=== PATIENT | female | born 1960 | race Caucasian/White ===

== ENCOUNTER 2020-02-16 13:25 | Emergency (ER) | payer SELFPAY ==
[~2020-02-16] VITALS: Ht 149.9 cm; Wt 52.2 kg
[2020-02-16] MEDS ORDERED: KETOROLAC TROMETHAMINE 60 MG/2 ML VIAL IM ONE (15:00)
[2020-02-16 16:56] VITALS: BP 165/69
== END 2020-02-16 17:01 | disposition home or self-care (01) ==
LOC: ER 13:45
DX: S93.401A Sprain of unspecified ligament of right ankle, initial encounter (principal); X50.1XXA Overexertion from prolonged static or awkward postures, initial encounter; Y92.008 Other place in unspecified non-institutional (private) residence as the place of occurrence of the external cause; I10 Essential (primary) hypertension; J45.909 Unspecified asthma, uncomplicated; I34.1 Nonrheumatic mitral (valve) prolapse
CPT/HCPCS: 29515; 73610; 73630; 99283; J1885

== ENCOUNTER 2023-05-29 16:30 | Observation (INO) | payer SELFPAY ==
[~2023-05-29] VITALS: Ht 149.9 cm; Wt 47.2 kg
[2023-05-29] MEDS ORDERED: ONDANSETRON HCL INJ 2MG/ML 2ML 2 MG/ML VIAL ONE (16:53)
[2023-05-29] MEDS: ONDANSETRON HCL INJ 2MG/ML 2ML 2 MG/ML VIAL IV STA (16:58)
[2023-05-29] MEDS ORDERED: ACETAMINOPHEN 325 MG TAB PO ONE (17:00)
[2023-05-29] MEDS: SODIUM CHLORIDE 0.9% 1000ML 1,000 ML IV SCH (17:21)
[2023-05-29] MEDS: FAMOTIDINE 20 MG/2 ML VIAL IV STA (17:22)
[2023-05-29] MEDS: HYDRALAZINE HCL 20 MG/ML VIAL IV ONE (17:22)
[2023-05-29] MEDS ORDERED: ALBUTEROL/IPRATROPIUM 3 ML NEB ONE (18:23)
[2023-05-29] MEDS ORDERED: KETOROLAC TROMETHAMINE 30 MG/ML VIAL ONE (18:23)
[2023-05-29] MEDS: ALBUTEROL/IPRATROPIUM 3 ML NEB NEB ONE (18:24)
[2023-05-29] MEDS: KETOROLAC TROMETHAMINE 30 MG/ML VIAL IV STA (18:25)
[2023-05-29] MEDS ORDERED: IOPAMIDOL 370 MG/ML 100 ML INFUS..BTL INJ ONE (18:58)
[2023-05-29] MEDS: PROMETHAZINE 12.5MG/ NACL 0.9% 12.5 MG/50 ML BAG IV ONE (19:09)
[2023-05-29] MEDS ORDERED: PROMETHAZINE HCL (IM) 25 MG/ML VIAL IM ONE (19:09)
[2023-05-29] MEDS ORDERED: ONDANSETRON HCL INJ 2MG/ML 2ML 2 MG/ML VIAL IV PRN (20:30)
[2023-05-29] MEDS ORDERED: SODIUM CHLORIDE 0.9% 1000ML 1,000 ML IV SCH (20:30)
[2023-05-29 21:18] VITALS: BP 143/69; PULSE 101; RESP 20; TEMP 98.6; O2SAT 97
[2023-05-29 21:20] VITALS: BP 143/69; PULSE 101; RESP 20; TEMP 98.6; O2SAT 97
[2023-05-29] MEDS ORDERED: GUAIFENESIN 600MG/DEXTROMETHORPHAN 30MG TABSR PO PRN (22:00)
[2023-05-29] MEDS: OSELTAMIVIR PHOSPHATE 75 MG CAP PO SCH (22:16)
[2023-05-29] MEDS: LISINOPRIL 20 MG TAB PO ONE (22:17)
[2023-05-29] MEDS: GUAIFENESIN 600MG/DEXTROMETHORPHAN 30MG TABSR PO PRN (22:48)
[2023-05-30] VITALS (8 sets, daily range): BP systolic 115–153; BP diastolic 61–90; PULSE 79–120; RESP 18–20; TEMP 98.1–98.7; O2SAT 94–100
[2023-05-30] MEDS: ALBUTEROL/IPRATROPIUM 3 ML NEB NEB SCH (01:49)
[2023-05-30] MEDS: HYDRALAZINE HCL 20 MG/ML VIAL IV ONE (02:43)
[2023-05-30] MEDS ORDERED: LISINOPRIL20 MG PO (05:23)
[2023-05-30] MEDS ORDERED: METOPROLOL SUCC25 MG PO (05:23)
[2023-05-30 06:13] LABS: BASOPHILS % 0.3 % (0.0-1.0); EOSINOPHILS % 0.3 % (0.0-6.0); HEMATOCRIT 37.3 % (34.2-44.1); HEMOGLOBIN 11.8 g/dL (12.0-16.0); LYMPHOCYTES # (AUTO) 0.8 (1.0-3.2); LYMPHOCYTES % 26.8 % (18.0-39.1); MEAN CORPUSCULAR HEMOGLOBIN 29.2 pg (28-32); MEAN CORPUSCULAR HGB CONC 31.6 g/dL (31-35); MEAN CORPUSCULAR VOLUME 92.3 fL (81-99); MONOCYTES # (AUTO) 0.4 (0.2-0.8); MONOCYTES % 14.2 % (4.4-11.3); NEUTROPHILS # (AUTO) 1.8 (2.1-6.9); NEUTROPHILS % 58.1 % (38.7-80.0); PLATELET COUNT 153 x10e3/uL (140-360); RED BLOOD COUNT 4.04 x10e6/uL (3.6-5.1); RED CELL DISTRIBUTION WIDTH 12.8 % (11.7-14.4)
[2023-05-30 06:38] LABS: ANION GAP 13.5 mmol/L (8-16); CALCIUM 7.8 mg/dL (8.4-10.2); CREATININE, SERUM 0.65 mg/dL (0.57-1.11); POTASSIUM 3.5 mmol/L (3.5-5.1)
[2023-05-30] MEDS: LISINOPRIL 20 MG TAB PO SCH (09:13)
[2023-05-30] MEDS ORDERED: POTASSIUM CHLORIDE 20 MEQ TAB CR PO ONE (15:45)
[2023-05-30] MEDS ORDERED: TAMIFLU75 MG PO (15:48)
[2023-05-30] MEDS ORDERED: ONDANSETRON ODT4 MG PO (15:48)
[2023-05-30] MEDS ORDERED: MUCINEX DM ER1 EACH PO (15:48)
[2023-05-30] MEDS ORDERED: LISINOPRIL 20 MG TAB PO SCH (17:00)
[2023-05-30] MEDS ORDERED: METOPROLOL SUCCINATE 25 MG TAB XL PO SCH (21:00)
== END 2023-05-30 18:03 | disposition home or self-care (01) ==
LOC: FSED 16:38 → ERHOLD 20:32 → MED/SURG2 21:22
PROVIDERS: ADMIT Internal Medicine; ATTEND Internal Medicine
DX: E86.0 Dehydration (principal); R11.2 Nausea with vomiting, unspecified; R19.7 Diarrhea, unspecified; E87.6 Hypokalemia; J10.1 Influenza due to other identified influenza virus with other respiratory manifestations; I10 Essential (primary) hypertension; K57.90 Diverticulosis of intestine, part unspecified, without perforation or abscess without bleeding; K76.89 Other specified diseases of liver; J45.909 Unspecified asthma, uncomplicated; I34.1 Nonrheumatic mitral (valve) prolapse; Z88.1 Allergy status to other antibiotic agents; Z88.0 Allergy status to penicillin; Z11.52 Encounter for screening for COVID-19; Z79.899 Other long term (current) drug therapy; Z80.1 Family history of malignant neoplasm of trachea, bronchus and lung; Z82.49 Family history of ischemic heart disease and other diseases of the circulatory system
CPT/HCPCS: 0223U; 36415; 71046; 74177; 80048 ×2; 80076; 80307; 81003; 83518; 85025 ×2; 87400; 94640 ×2; 94799; 96374; 96375; 99284; G0378 ×2; J0360; J1885; J2405; J2550; J7030; Q9967